=== PATIENT | female | born 1955 | race Caucasian/White ===

== ENCOUNTER 2022-10-29 17:23 | Emergency (ER) | payer OTHER ==
[~2022-10-29] VITALS: Ht 157.5 cm; Wt 74.8 kg
[2022-10-29 17:32] VITALS: BP 146/52
--- NOTE | 2022-10-29 18:50 | NUR ---
TO BED VIA WHEELCHAIR
--- NOTE | 2022-10-29 19:30 | NUR ---
PT ON BED 1. A/OX4, NOT IN DISTRESS. ATTACHED TO MONITOR
[2022-10-29] MEDS ORDERED: ATA25 PO (20:05)
[2022-10-29 20:50] VITALS: BP 138/60
== END 2022-10-29 20:50 | disposition home or self-care (01) ==
LOC: MED 17:23
DX: F41.9 Anxiety disorder, unspecified (principal); Z20.822 Contact with and (suspected) exposure to COVID-19; R10.13 Epigastric pain; Z79.899 Other long term (current) drug therapy
CPT/HCPCS: 99283